=== PATIENT | male | born 1985 | race Caucasian/White ===

== ENCOUNTER 2018-10-11 18:36 | Emergency (ER) | payer BC, OTHER ==
[2018-10-11] MEDS ORDERED: Lidocaine 1% 10 ML MDV INJECT ONE (19:08)
--- NOTE | 2018-10-11 19:16 | EDM.PDOC ---
ED HPI GENERAL MEDICAL PROBLEM - General Chief Complaint: Laceration Stated Complaint: CUT RING FINGER & PALM OF RIGHT HAND Time Seen by Provider: 10/11/18 19:09 Source of Information: Reports: Patient History Limitations: Reports: No Limitations - History of Present Illness INITIAL COMMENTS - FREE TEXT/NARRATIVE: 33-year-old male presents to the ED with injuries to the volar aspect of his right hand. This occurred at work at approximately 1630 hrs. today when a glass bottle that he had in his hand ,essentially exploded. He suffered a deep laceration to the middle phalanx that continues to bleed. Is only about 1.2 cm in length. There is a smaller laceration on the mid palmar aspect of the hand that is not actively bleeding. Last tetanus toxoid was approximately 5 years ago. Denies any other injuries. He comes to the ED because he can get the bleeding to stop. Injury occurred about 1630 hrs. today. Of note the patient is right-hand dominant. Onset: Today Onset Date: 10/11/18 Onset Time: 16:30 Duration: Hour(s): Location: Reports: Upper Extremity, Right (Rt index finger laceration. Smaller laceration palm of the hand ) Quality: Reports: Other ( index finger wound continues to bleeding ) Severity: Moderate Improves with: Reports: None Worsens with: Reports: None Context: Reports: Other ( injury at work . ). 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 [No Known Home Meds] 10/11/18 [History] Past Medical History Gastrointestinal History: Reports: Celiac Disease Social & Family History - Tobacco Use Smoking Status *Q: Current Every Day Smoker Years of Tobacco use: 12 Packs/Tins Daily: 0.5 - Caffeine Use Caffeine Use: Reports: Coffee, Energy Drinks, Soda, Tea - Recreational Drug Use Recreational Drug Use: Yes Recreational Drug Type: Reports: Marijuana/Hashish - Living Situation & Occupation Living situation: Reports: Single Occupation: Employed ED ROS GENERAL - Review of Systems Review Of Systems: See Below Constitutional: Reports: No Symptoms HEENT: Reports: No Symptoms Respiratory: Reports: No Symptoms Cardiovascular: Reports: No Symptoms Endocrine: Reports: No Symptoms GI/Abdominal: Reports: No Symptoms : Reports: No Symptoms Musculoskeletal: Reports: No Symptoms Skin: Reports: Other (Lacerations to the volar aspect of his right hand.) Neurological: Reports: No Symptoms Psychiatric: Reports: No Symptoms Hematologic/Lymphatic: Reports: No Symptoms Immunologic: Reports: No Symptoms ED EXAM, SKIN/RASH Exam: See Below Exam Limited By: No Limitations General Appearance: Alert, WD/WN, No Apparent Distress Extremities: Other (1.2-1.5 cm laceration across the volar aspect of the index finger right hand middle phalanx. 0.8 mm laceration mid palm of right hand that is not actively bleeding. Patient has full range of motion and tactile sensation to the distal aspect of his right index finger. There is no medical evidence of tendon laceration.) Neurological: Alert, Oriented, CN II-XII Intact, Normal Cognition Psychiatric: Normal Affect, Normal Mood Skin: Warm, Dry, Intact, Normal Color, No Rash Location, Skin: Other (Lacerations palm of right hand.) ED SKIN PROCEDURES - Laceration/Wound Repair Right Distal Ventral Digit - 2nd (Index) Lac/Wound length In cm: 1.2 (Laceration across the middle portion of the middle phalanx volar aspect) Appearance: Subcutaneous ( right index finger), Clean Distal NVT: Neuro & Vascular Intact Anesthetic Type: Local Local Anesthesia - Lidocaine (Xylocaine): 1% Plain Skin Prep: Chlorhexidine (Hibiciens) Exploration/Debridement/Repair: Minimal Debridement Closed with: Sutures Suture Size: 4-0 # of Sutures: 3 Suture Type: Nylon, Interrupted, Simple Course - Vital Signs Last Recorded V/S: Last Vital Signs Temp 37.6 C 10/11/18 19:03 Pulse 97 10/11/18 19:03 Resp 20 10/11/18 19:03 BP 150/90 H 10/11/18 19:03 Pulse Ox 100 10/11/18 19:03 - Orders/Labs/Meds Meds: Medications Discontinued Medications Generic Name Dose Route Start Last Admin Trade Name Freq PRN Reason Stop Dose Admin Lidocaine HCl 10 ml 10/11/18 19:08 10/11/18 19:30 Xylocaine 1% INJECT 10/11/18 19:09 10 ml ONETIME ONE Administration - Radiology Interpretation Free Text/Narrative:: 33-year-old male presents to the ED with a work-related injury. Patient suffered lacerations to the volar aspect of his right index finger across the middle phalanx. The wound appears to be 1.2-1.5 cm in length. Suffered a 0.8 mm laceration more superficial mid palmar aspect of the right hand. Tetanus toxoid is up-to-date. Note the patient is right hand dominant. Plan laceration repair right index finger - Re-Assessments/Exams Free Text/Narrative Re-Assessment/Exam: 10/11/18 19:42 1.2 cm laceration volar aspect of the right index finger sutured 3. This provided satisfactory hemostasis. Again the palmar wound is very superficial and will not be sutured. Wound was treated with antibiotic ointment and finger cot dressing. Sutures will need to be removed in 10 days' time Departure - Departure Time of Disposition: 19:43 Disposition: Home, Self-Care 01 Condition: Fair Clinical Impression: Laceration of finger Qualifiers: Encounter type: initial encounter Finger: index finger Damage to nail status: without damage Foreign body presence: without foreign body Laterality: right Qualified Code(s): S61.210A - Laceration without foreign body of right index finger without damage to nail, initial encounter Laceration of hand Qualifiers: Encounter type: initial encounter Foreign body presence: without foreign body Laterality: right Qualified Code(s): S61.411A - Laceration without foreign body of right hand, initial encounter - Discharge Information *PRESCRIPTION DRUG MONITORING PROGRAM REVIEWED*: Not Applicable *COPY OF PRESCRIPTION DRUG MONITORING REPORT IN PATIENT JILLIAN: Not Applicable Instructions: Stitches, [place], or Adhesive Wound Closure, [id number] Referrals: PCP,None [Primary Care Provider] - Forms: ED Department Discharge Additional Instructions: Evaluation the emergency room today in regards to work related injury that occurred about 1630 hrs. today. For unknown reasons a bottle of triple sec-- left ear exploded in your hand. This resulted in a glass cuts to the mid palmar aspect of the hand which was fairly superficial and did not require laceration repair. It however did result in a deeper laceration across the middle phalanx on the volar aspect of your index finger that required laceration repair. 3 sutures were palced to provide wound closure.Tetanus toxoid is up-to-date. Wound was cleansed and then sutured under local anesthetic. Sutures will need to be removed in 10 days' time either by her primary care physician or at the walk-in clinic. Treatment at home is daily cleanse the wound with soap and water. Showering is okay although the hand should not be soaked under water until the sutures are removed. Apply a thin layer of antibiotic ointment such as bacitracin or Polysporin once daily and cover with bandage to keep clean.
== END 2018-10-11 19:53 | disposition home or self-care (01) ==
LOC: JD.ED 18:36
DX: S61.210A Laceration without foreign body of right index finger without damage to nail, initial encounter (principal); Y99.0 Civilian activity done for income or pay; F17.210 Nicotine dependence, cigarettes, uncomplicated; W25.XXXA Contact with sharp glass, initial encounter; Z88.8 Allergy status to other drugs, medicaments and biological substances; Z88.7 Allergy status to serum and vaccine
CPT/HCPCS: 12001; 99282; J2001; 12041

== ENCOUNTER 2023-03-18 19:02 | Emergency (ER) | payer MEDICAID ==
[2023-03-18] MEDS ORDERED: Sodium Chloride 0.9% 10 ML Syringe FLUSH PRN (19:26)
[2023-03-18 19:36] LABS: BASOPHILS ABSOLUTE AUTO 0.1 K/mm3 (0.0-0.2); BASOPHILS PERCENT AUTO 0.9 % (0.0-1.0); EOSINOPHILS ABSOLUTE AUTO 0.2 K/mm3 (0.0-0.4); EOSINOPHILS PERCENT AUTO 2.4 % (0.0-6.0); HEMATOCRIT 44.6 % (42.0-52.0); HEMOGLOBIN 15.5 gm/dl (14.0-18.0); IMMATURE GRAN ABSOLUTE AUTO 0.07 K/mm3 (0.00-0.05); IMMATURE GRAN PERCENT AUTO 0.8 % (0.0-0.4); LYMPHOCYTES ABSOLUTE AUTO 3.1 K/mm3 (1.0-4.8); LYMPHOCYTES PERCENT AUTO 33.2 % (24.0-44.0); MEAN CORPUSCULAR HEMOGLOBIN 30.6 pg (28.0-32.0); MEAN CORPUSCULAR HGB CONC 34.8 g/dl (32.0-36.0); MEAN CORPUSCULAR VOLUME 88.1 fl (83.0-99.0); MEAN PLATELET VOLUME 10.3 fl (9.4-12.4); MONOCYTES ABSOLUTE AUTO 0.8 K/mm3 (0.0-0.8); MONOCYTES PERCENT AUTO 8.3 % (0.0-8.0); NEUTROPHILS ABSOLUTE AUTO 5.1 K/mm3 (1.8-7.7); NEUTROPHILS PERCENT AUTO 54.4 % (41.0-71.0); PLATELET COUNT,PLT 272 K/mm3 (150-400); RED BLOOD CELL COUNT 5.06 M/mm3 (4.52-5.90); WHITE BLOOD CELL COUNT,WBC 9.31 K/mm3 (3.9-11.3)
[2023-03-18] MEDS ORDERED: Diltiazem IR 60 MG Tab PO ONE (19:40)
[2023-03-18 20:05] LABS: A/G RATIO 1.3 (1-2); ALANINE AMINOTRANSFERASE,ALT 33 U/L (16-63); ALBUMIN 4.8 g/dl (3.4-5.0); ALKALINE PHOSPHATASE 56 U/L (46-116); ANION GAP 17.1 (5-15); ASPARTATE AMNIOTRANSFERASE,AST 23 U/L (15-37); BILIRUBIN TOTAL 0.4 mg/dL (0.2-1.0); BLOOD UREA NITROGEN,BUN 18 mg/dL (7-18); CALCIUM 9.6 mg/dL (8.5-10.1); CARBON DIOXIDE,CO2 22 mEq/L (21-32); CHLORIDE,CL 102 mEq/L (98-107); CREATININE 1.2 mg/dL (0.7-1.3); EST CRCL DRUG DOSING (CG) 98.94 mL/min; ESTIMATED GFR 80 mL/min (>60); GLUCOSE RANDOM 122 mg/dL (70-99); POTASSIUM,K 3.1 mEq/L (3.5-5.1); PROTEIN TOTAL,TP 8.4 g/dl (6.4-8.2); SODIUM,NA 138 mEq/L (136-145)
[2023-03-18 20:07] LABS: TROPONIN I HIGH SENSITIVITY < 4 pg/mL (<=76)
[2023-03-18] MEDS ORDERED: Potassium Chloride 20 MEQ Tab.ER PO ONE (20:24)
[2023-03-18 20:48] LABS: APPEARANCE,URINE CLEAR (Clear); BILIRUBIN,URINE NEGATIVE (Negative); COLOR,URINE YELLOW (Yellow); GLUCOSE,URINE NEGATIVE (Negative); KETONES,URINE NEGATIVE (Negative); LEUKOCYTE ESTERASE,URINE NEGATIVE (Negative); NITRITE,URINE NEGATIVE (Negative); OCCULT BLOOD,URINE NEGATIVE (Negative); PROTEIN,URINE NEGATIVE (Negative); UROBILINOGEN,URINE 0.2 (0.2-1.0)
[2023-03-18 21:01] LABS: BACTERIA,URINE FEW /hpf (FEW); MUCUS,URINE NOT SEEN /hpf (FEW); RBC,URINE 0-5 /hpf (0-5); SQUAMOUS EPITHELIAL CELLS,UR NOT SEEN /hpf (0-5); WBC,URINE 0-5 /hpf (0-5)
== END 2023-03-18 21:55 | disposition home or self-care (01) ==
LOC: JD.ED 19:02
DX: I10 Essential (primary) hypertension (principal); F41.9 Anxiety disorder, unspecified; F17.210 Nicotine dependence, cigarettes, uncomplicated; Z86.16 Personal history of COVID-19; Z88.7 Allergy status to serum and vaccine; Z88.8 Allergy status to other drugs, medicaments and biological substances
CPT/HCPCS: 36415; 80053; 81001; 84484; 85025; 93005; 99283; A9270; J3490; 93010; 99282

== ENCOUNTER 2023-11-11 21:25 | Emergency (ER) | payer SELFPAY ==
[2023-11-11] MEDS: Sodium Chloride 0.9% 1,000 ML IV ONE (22:57)
[2023-11-11] MEDS: Acetaminophen 325 MG Tab PO ONE (22:57)
[2023-11-11] MEDS: Ketorolac 15 MG/ML SDV IVPUSH ONE (22:57)
[2023-11-11 22:58] LABS: BASOPHILS ABSOLUTE AUTO 0.1 K/mm3 (0.0-0.2); BASOPHILS PERCENT AUTO 0.4 % (0.0-1.0); EOSINOPHILS ABSOLUTE AUTO 0.1 K/mm3 (0.0-0.4); EOSINOPHILS PERCENT AUTO 0.7 % (0.0-6.0); HEMATOCRIT 44.5 % (42.0-52.0); HEMOGLOBIN 15.1 gm/dl (14.0-18.0); IMMATURE GRAN PERCENT AUTO 0.7 % (0.0-0.4); LYMPHOCYTES ABSOLUTE AUTO 1.6 K/mm3 (1.0-4.8); LYMPHOCYTES PERCENT AUTO 11.4 % (24.0-44.0); MEAN CORPUSCULAR HEMOGLOBIN 30.1 pg (28.0-32.0); MEAN CORPUSCULAR HGB CONC 33.9 g/dl (32.0-36.0); MEAN CORPUSCULAR VOLUME 88.6 fl (83.0-99.0); MEAN PLATELET VOLUME 9.7 fl (9.4-12.4); MONOCYTES ABSOLUTE AUTO 0.8 K/mm3 (0.0-0.8); MONOCYTES PERCENT AUTO 5.9 % (0.0-8.0); NEUTROPHILS ABSOLUTE AUTO 11.1 K/mm3 (1.8-7.7); NEUTROPHILS PERCENT AUTO 80.9 % (41.0-71.0); PLATELET COUNT,PLT 243 K/mm3 (150-400); RED BLOOD CELL COUNT 5.02 M/mm3 (4.52-5.90); WHITE BLOOD CELL COUNT,WBC 13.77 K/mm3 (3.9-11.3)
[2023-11-11 23:18] LABS: A/G RATIO 1.2 (1-2); ALBUMIN 4.5 g/dl (3.4-5.0); ANION GAP 14.8 (5-15); BILIRUBIN TOTAL 0.5 mg/dL (0.2-1.0); BUN/CREATININE RATIO 12.7 (14-18); C-REACTIVE PROTEIN 2.36 mg/dL (<0.30); CALCIUM 9.3 mg/dL (8.5-10.1); CREATININE 1.1 mg/dL (0.7-1.3); EST CRCL DRUG DOSING (CG) 107.94 mL/min; POTASSIUM,K 3.8 mEq/L (3.5-5.1); PROTEIN TOTAL,TP 8.3 g/dl (6.4-8.2)
[2023-11-12] MEDS: Iopamidol 612 MG/ML 100 ML Bottle IVPUSH ONE (00:44)
[2023-11-12] MEDS: Sodium Chloride 0.9% 10 ML Syringe FLUSH PRN (00:45)
[2023-11-12] MEDS: Amoxicillin/Clavulanate K 875-125 MG Tab PO ONE (01:23)
== END 2023-11-12 01:34 | disposition home or self-care (01) ==
LOC: JD.ED 21:25
DX: K11.21 Acute sialoadenitis (principal); I10 Essential (primary) hypertension; Z86.16 Personal history of COVID-19; Z79.899 Other long term (current) drug therapy; Z88.7 Allergy status to serum and vaccine; Z91.09 Other allergy status, other than to drugs and biological substances
CPT/HCPCS: 36415; 70487; 80053; 85025; 86140; 96361; 96374; 99284; A9270; J1885; J3490; J7030; Q9967